=== PATIENT | female | born 1960 | race African-American/Black ===

== ENCOUNTER 2017-05-13 08:11 | Emergency (ER) | payer MEDICAID ==
[~2017-05-13] VITALS: Ht 162.6 cm; Wt 75.0 kg
[2017-05-13 11:34] VITALS: BP 126/72
== END 2017-05-13 11:35 | disposition home or self-care (01) ==
LOC: ER 09:52
DX: H57.8 Other specified disorders of eye and adnexa (principal); F17.210 Nicotine dependence, cigarettes, uncomplicated
CPT/HCPCS: 99282

== ENCOUNTER 2019-10-08 19:37 | Emergency (ER) | payer MEDICAID ==
[~2019-10-08] VITALS: Ht 170.2 cm; Wt 86.0 kg
[2019-10-08 22:40] VITALS: BP 149/79
[2019-10-08] MEDS ORDERED: SODIUM CHLORIDE 0.9% 1,000 ML IV ONE (23:01)
[2019-10-08] MEDS ORDERED: METHYLPREDNISOLONE SOD SUCC 125 MG/2 ML VIAL IV STA (23:01)
[2019-10-08] MEDS ORDERED: IPRATROPIUM/ALBUTEROL 0.5-3(2.5)MG/3ML NEB HHN ONE (23:15)
[2019-10-08] MEDS ORDERED: LEVOFLOXACIN 750MG PREMIX 150 ML IV ONE (23:15)
== END 2019-10-09 00:44 | disposition home or self-care (01) ==
LOC: ER 19:37
DX: J40 Bronchitis, not specified as acute or chronic (principal); F17.210 Nicotine dependence, cigarettes, uncomplicated; Z71.6 Tobacco abuse counseling
CPT/HCPCS: 93005; 99283; 99406; J7030

== ENCOUNTER 2022-11-08 04:15 | Emergency (ER) | payer MEDICAID, OTHER ==
[~2022-11-08 04:15] MED LIST: LISI-649 MT; T3 PO
== END 2022-11-08 05:44 | disposition left against medical advice (07) ==
LOC: ER 04:15
DX: Z53.21 Procedure and treatment not carried out due to patient leaving prior to being seen by health care provider (principal)

== ENCOUNTER 2024-01-28 11:01 | Emergency (ER) | payer MEDICAID, OTHER ==
[~2024-01-28] VITALS: Ht 172.7 cm; Wt 70.0 kg
[2024-01-28 11:02] VITALS: TEMP 98.6; O2SAT 99
[2024-01-28] MEDS ORDERED: DICYCLOMINE 10 MG/5 ML ORAL SYR PO STA (11:14)
[2024-01-28] MEDS ORDERED: MAGNESIUM/ALUMINUM HYDROXIDE/SIMETHICONE 30ML UDC PO STA (11:14)
[2024-01-28] MEDS ORDERED: ONDANSETRON 4MG ODT PO STA (11:14)
[2024-01-28] MEDS: DICYCLOMINE HCL 10MG CAPSULE PO NR (11:30)
[2024-01-28 11:58] LABS: BASOPHILS % 0.6 % (0.0-2.0); HEMATOCRIT. 47.1 % (36.0-48.0); HEMOGLOBIN. 15.5 g/dL (12.0-16.0); MEAN CORPUSCULAR HEMOGLOBIN 28.1 pg (28.0-32.0); MEAN CORPUSCULAR HGB CONC 32.8 g/dL (31.0-37.0); MEAN CORPUSCULAR VOLUME 85.4 fL (81.0-99.0); MEAN PLATELET VOLUME 8.4 fl (7.4-10.4); MONOCYTES % 10.4 % (2.0-8.0); PLATELET 347 x1000/uL (130-400); RED BLOOD CELL COUNT 5.52 mill/uL (4.2-5.4); RED CELL DISTRIBUTION WIDTH 15.8 % (11.6-14.6); WHITE BLOOD COUNT 7.2 x1000/uL (4.5-11.0)
[2024-01-28 12:01] LABS: CHLORIDE 103 mEq/L (98-107)
[2024-01-28 12:02] LABS: SODIUM 137 mEq/L (136-145)
[2024-01-28 12:03] LABS: CALCIUM 10.6 mg/dL (8.7-10.4); CARBON DIOXIDE 24 mEq/L (21-32)
[2024-01-28 12:08] LABS: CREATININE 1.6 mg/dL (0.6-1.0); GLUCOSE 107 mg/dL (70-105); UREA NITROGEN BLOOD 12 mg/dL (9-23)
[2024-01-28 12:10] LABS: ALANINE AMINOTRANSFERASE 12 IU/L (10-49); ALBUMIN 5.4 g/dL (3.2-4.8); ASPARTATE AMINOTRANSFERASE 21 IU/L (<34); BILIRUBIN DIRECT 0.2 mg/dL (<=3.0); BILIRUBIN TOTAL 0.7 mg/dL (0.1-1.0); PROTEIN TOTAL 8.5 g/dL (6.0-8.3)
[2024-01-28 12:30] LABS: INR 0.9; PROTHROMBIN TIME 10.6 sec (9.6-11.0)
[2024-01-28] MEDS: MAGNESIUM/ALUMINUM HYDROXIDE/SIMETHICONE 30ML UDC PO NR (13:45)
[2024-01-28] MEDS: ONDANSETRON 4MG ODT PO NR (13:45)
[2024-01-28] MEDS ORDERED: TOPUD MT (14:37)
[2024-01-28] MEDS ORDERED: PANT40SU MT (14:37)
[2024-01-28 14:50] VITALS: BP 120/84; PULSE 68; RESP 20
== END 2024-01-28 14:55 | disposition home or self-care (01) ==
LOC: ER 11:01
DX: K29.00 Acute gastritis without bleeding (principal); I10 Essential (primary) hypertension
CPT/HCPCS: 99284; 80076; 80048; 83690; 85025; 85610; 36415; Q0162

== ENCOUNTER 2025-02-12 23:57 | Emergency (ER) | payer MEDICAID ==
[~2025-02-12] VITALS: Ht 170.2 cm; Wt 88.0 kg
[~2025-02-12 23:57] MED LIST changes: +PANT40SU MT; +TOPUD MT
[2025-02-13 00:13] VITALS: O2SAT 96
[2025-02-13] MEDS: KETOROLAC 15MG/ML VIAL IM ONE (02:31)
[2025-02-13] MEDS ORDERED: NAPR-1176 MT (03:59)
[2025-02-13] MEDS ORDERED: LIDO-53 TP (03:59)
[2025-02-13 04:03] VITALS: BP 138/81; PULSE 63; RESP 20; TEMP 36.6; O2SAT 100
== END 2025-02-13 04:09 | disposition home or self-care (01) ==
LOC: ER 23:57
DX: M25.561 Pain in right knee (principal); M25.469 Effusion, unspecified knee; I10 Essential (primary) hypertension; I87.1 Compression of vein; Z79.1 Long term (current) use of non-steroidal anti-inflammatories (NSAID); Z79.899 Other long term (current) drug therapy
CPT/HCPCS: 99285; 93971; 73562; 96372; J1885